=== PATIENT | female | born 1940 | race Caucasian/White ===

== ENCOUNTER 2016-10-21 09:41 | Emergency (ER) | payer OTHER, MEDICARE ==
[~2016-10-21] VITALS: Ht 157.5 cm; Wt 99.8 kg
[2016-10-21] MEDS ORDERED: ULTRAM50 MG PO (13:36)
[2016-10-21] MEDS ORDERED: COZAAR50 MG PO (13:38)
[2016-10-21] MEDS ORDERED: NADOLOL20 MG PO (13:39)
[2016-10-21] MEDS ORDERED: LYRICA75 MG PO (13:39)
[2016-10-21] MEDS ORDERED: EFFEXOR XR150 MG PO (13:40)
[2016-10-21] MEDS ORDERED: SYNTHROID25 MCG PO (13:41)
[2016-10-21] MEDS ORDERED: SYNTHROID112 MCG PO (13:41)
[2016-10-21] MEDS ORDERED: LANTUS100 UNIT/1 SUBCUT ×2 (13:42)
[2016-10-21] MEDS ORDERED: NOVOLOG100 UNIT/2 SUBCUT (13:43)
[2016-10-21] MEDS ORDERED: LASIX40 MG PO (13:59)
[2016-10-21] MEDS ORDERED: JARDIANCE10 MG PO (14:00)
[2016-10-21] MEDS ORDERED: PLAQUENIL200 MG PO (14:00)
[2016-10-21] MEDS ORDERED: AZULFIDINE500 MG PO (14:01)
[2016-10-21] MEDS ORDERED: PERCOCET 325-51 TAB PO (14:01)
[2016-10-21] MEDS ORDERED: LIPITOR20 MG PO (14:02)
[2016-10-21] MEDS ORDERED: CENTRUM SILVER1 EAC3 PO (14:03)
[2016-10-21] MEDS ORDERED: CLARITIN10 MG PO (14:03)
[2016-10-21] MEDS ORDERED: PRILOSEC20 MG PO (14:03)
== END 2016-10-21 11:50 | disposition short-term general hospital (02) ==
LOC: ER 09:41
DX: R10.13 Epigastric pain (principal); R11.0 Nausea; M25.511 Pain in right shoulder; E11.43 Type 2 diabetes mellitus with diabetic autonomic (poly)neuropathy; K31.84 Gastroparesis; F32.9 Major depressive disorder, single episode, unspecified; K21.9 Gastro-esophageal reflux disease without esophagitis; E03.9 Hypothyroidism, unspecified; Z79.899 Other long term (current) drug therapy
CPT/HCPCS: Q9963

== ENCOUNTER → 2016-11-10 | Outpatient (CLI) | payer OTHER, MEDICARE ==
[~2016-11-10] MED LIST: AZULFIDINE500 MG PO; CENTRUM SILVER1 EAC3 PO; CLARITIN10 MG PO; COZAAR50 MG PO; EFFEXOR XR150 MG PO; JARDIANCE10 MG PO; LANTUS100 UNIT/1 SUBCUT; LASIX40 MG PO; LIPITOR20 MG PO; LYRICA75 MG PO; NADOLOL20 MG PO; NOVOLOG100 UNIT/2 SUBCUT; PERCOCET 325-51 TAB PO; PLAQUENIL200 MG PO; PRILOSEC20 MG PO; SYNTHROID112 MCG PO; SYNTHROID25 MCG PO; ULTRAM50 MG PO
== END | disposition short-term general hospital (02) ==
LOC: CLRHEU 09:30
DX: M06.00 Rheumatoid arthritis without rheumatoid factor, unspecified site (principal); M79.641 Pain in right hand; M79.642 Pain in left hand; M79.89 Other specified soft tissue disorders; M79.7 Fibromyalgia

== ENCOUNTER → 2016-12-28 | Outpatient (CLI) | payer OTHER, MEDICARE | END | disposition short-term general hospital (02) | LOC: CLNEUR 11:34 | DX: R53.1 Weakness (principal) ==